=== PATIENT | female | born 1950 | race Caucasian/White ===

== ENCOUNTER 2017-10-06 07:13 | Outpatient (CLI) | payer OTHER | END 2017-10-06 07:21 | disposition home or self-care (01) | LOC: SONOGRAMA 07:13 | DX: C07 Malignant neoplasm of parotid gland (principal) ==

== ENCOUNTER 2022-06-09 14:32 | Inpatient (IN) | payer OTHER ==
[~2022-06-09] VITALS: Ht 167.6 cm; Wt 76.2 kg
[2022-06-10] MEDS ORDERED: DALIRESP500 MCG (11:27)
[2022-06-10] MEDS ORDERED: DILTIAZEM ER120 M3 (11:28)
[2022-06-10] MEDS ORDERED: LEVETIRACETAM1000 MG (11:28)
[2022-06-10] MEDS ORDERED: VENLAFAXINE HCL75 M1 (11:28)
[2022-06-10] MEDS ORDERED: MONTELUKAST SOD10 MG (11:28)
[2022-06-10] MEDS ORDERED: PROPAFENONE HC150 MG (11:28)
[2022-06-10] MEDS ORDERED: SERTRALINE HCL100 MG (11:28)
[2022-06-10] MEDS ORDERED: SYNTHROID125 MCG (11:28)
[2022-06-10] MEDS ORDERED: OPTIMAL D31250 MCG (11:29)
[2022-06-10] MEDS ORDERED: LINZESS290 MCG (11:29)
[2022-06-10] MEDS ORDERED: DEXAMETHASONE4 MG (11:29)
[2022-06-10] MEDS ORDERED: DULOXETINE HCL30 MG (11:29)
[2022-06-10] MEDS ORDERED: PANTOPRAZOLE SO40 MG (11:29)
[2022-06-10] MEDS ORDERED: PHENERGAN25 MG (11:29)
[2022-06-10] MEDS ORDERED: LIDOCAINE-PRILO30 GM (11:29)
[2022-06-25] MEDS ORDERED: PHENERGAN25 MG PO (13:37)
[2022-06-25] MEDS ORDERED: DILTIAZEM HCL120 MG PO (13:37)
[2022-06-25] MEDS ORDERED: LEVETIRACETAM1000 MG PO (13:39)
[2022-06-25] MEDS ORDERED: GABAPENTIN100 MG PO (13:39)
[2022-06-25] MEDS ORDERED: VENLAFAXINE HCL75 M1 PO (13:40)
[2022-06-25] MEDS ORDERED: ALTIPRES LIQUI473 ML PO (13:41)
[2022-06-25] MEDS ORDERED: MONTELUKAST SOD10 MG PO (13:41)
[2022-06-25] MEDS ORDERED: FAMOTIDINE20 MG PO (13:42)
[2022-06-25] MEDS ORDERED: DALIRESP500 MCG PO (13:42)
[2022-06-25] MEDS ORDERED: DEXAMETHASONE4 MG PO (13:44)
[2022-06-25] MEDS ORDERED: SYNTHROID125 MCG PO (13:45)
[2022-06-25] MEDS ORDERED: LIDODERM1 EACH TOP (13:46)
[2022-06-25] MEDS ORDERED: APETIGEN P12.5 MG/15 PO (13:47)
== END 2022-06-25 19:40 | disposition home or self-care (01) | DRG 73 ==
LOC: ER 14:32 → SURH 22:17 → MEDJ 06-19 10:59
PROVIDERS: ADMIT Internal Medicine Hematology & Oncology; ATTEND Internal Medicine Hematology & Oncology
PROC: BW21ZZZ Computerized Tomography (CT Scan) of Abdomen and Pelvis (ICD-10-PCS; 2022-06-12)
PROC: BW24YZZ Computerized Tomography (CT Scan) of Chest and Abdomen using Other Contrast (ICD-10-PCS; 2022-06-12)
PROC: B030ZZZ Magnetic Resonance Imaging (MRI) of Brain (ICD-10-PCS; 2022-06-13)
PROC: XW033E5 Introduction of Remdesivir Anti-infective into Peripheral Vein, Percutaneous Approach, New Technology Group 5 (ICD-10-PCS; principal; 2022-06-20)
PROC: 4A12X4Z Monitoring of Cardiac Electrical Activity, External Approach (ICD-10-PCS; 2022-06-24)
DX: B02.29 Other postherpetic nervous system involvement (principal); U07.1 COVID-19; J44.1 Chronic obstructive pulmonary disease with (acute) exacerbation; C34.11 Malignant neoplasm of upper lobe, right bronchus or lung; C78.01 Secondary malignant neoplasm of right lung; G40.802 Other epilepsy, not intractable, without status epilepticus; E86.0 Dehydration; E87.6 Hypokalemia; K29.00 Acute gastritis without bleeding; D63.1 Anemia in chronic kidney disease; R13.19 Other dysphagia; E03.9 Hypothyroidism, unspecified; G62.89 Other specified polyneuropathies; I12.9 Hypertensive chronic kidney disease with stage 1 through stage 4 chronic kidney disease, or unspecified chronic kidney disease; N18.9 Chronic kidney disease, unspecified; Z92.21 Personal history of antineoplastic chemotherapy; F17.200 Nicotine dependence, unspecified, uncomplicated
CPT/HCPCS: 70553